=== PATIENT | male | born 2000 | race Caucasian/White ===

== ENCOUNTER 2020-12-26 19:26 | Emergency (ER) | payer SELFPAY ==
[2020-12-26] MEDS ORDERED: CELEBREX100 M1 PO (20:40)
[2020-12-26] MEDS ORDERED: FLEXERIL5 M1 PO (20:40)
[2020-12-26 21:30] VITALS: BP 126/79
== END 2020-12-26 21:30 | disposition home or self-care (01) | DRG 552 ==
LOC: ED 19:26
DX: M54.5 Low back pain (principal); F17.200 Nicotine dependence, unspecified, uncomplicated